=== PATIENT | male | born 1975 ===

== ENCOUNTER 2019-01-24 10:57 | Emergency (ER) | payer SELFPAY ==
[2019-01-24 11:03] VITALS: RESP 18; BMI 20.3
--- NOTE | 2019-01-24 12:07 | ED PDOC ---
HPI: Headache Time Seen by Provider: 01/24/19 11:25 History Per: Patient Onset/Duration Of Symptoms: Other (3 weeks) Current Symptoms Are (Timing): Intermittent Episodes Severity: Mild Quality: Aching Preceeding Symptoms: None Associated Symptoms: denies: Photophobia, Blurred Vision, Nausea, Vomiting, Extremity Weakness Additional Complaint(s): Intermittent bitemporal and frontal headaches x 3 weeks. Denies fever or injury. Denies dizziness, visual disturbances or peripheral weakness. Past Medical History Vital Signs: Last Vital Signs Temp 97.7 F 01/24/19 11:02 Pulse 73 01/24/19 11:02 Resp 18 01/24/19 11:02 BP 125/75 01/24/19 11:02 Pulse Ox 97 01/24/19 11:02 - Surgical History Other surgeries: Traumatic amputation right lower ext. - Family History Family History: States: Unknown Family Hx - Home Medications Home Medications: Ambulatory Orders Medication Instructions Recorded Famotidine [Pepcid] 20 mg PO BID #28 tab 03/06/15 Ondansetron [Zofran] 4 mg PO Q8H #9 tab 03/06/15 Cyclobenzaprine Hydrochlorid 5 mg PO TID PRN #15 tab 04/22/15 [Cyclobenzaprine] Ibuprofen 600 mg PO Q6H PRN #15 tab 04/22/15 Oxycodone HCl/Acetaminophen 1 tab PO Q6 PRN #15 tab 04/22/15 [Percocet 325 mg-5 mg] traMADol [Ultram] 50 mg PO Q8 #10 tab 01/24/19 - Allergies Allergies/Adverse Reactions: Allergies Allergy/AdvReac Type Severity Reaction Status Date / Time No Known Allergies Allergy Verified 01/24/19 12:18 Review of Systems Constitutional: Negative for: Fever Eyes: Negative for: Vision Change Musculoskeletal: Negative for: Neck Pain Neurological: Positive for: Headache. Negative for: Weakness, Numbness, Dizziness Physical Exam - Reviewed Nursing Documentation Reviewed: Yes Vital Signs Reviewed: Yes - Physical Exam Appears: Positive for: Non-toxic, No Acute Distress Head Exam: Positive for: ATRAUMATIC, NORMAL INSPECTION, NORMOCEPHALIC Skin: Positive for: Normal Color, Warm, DRY Eye Exam: Positive for: EOMI, Normal appearance, PERRL ENT: Positive for: Normal ENT Inspection. Negative for: Sinus Pain/Drainage Neck: Positive for: Normal, Painless ROM Cardiovascular/Chest: Positive for: Regular Rate, Rhythm Respiratory: Positive for: CNT, Normal Breath Sounds Gastrointestinal/Abdominal: Positive for: Normal Exam, Soft Back: Positive for: Normal Inspection Extremity: Positive for: Other (Prosthesis right lower ext) Neurologic/Psych: Positive for: Alert, Oriented. Negative for: Motor/Sensory Deficits - ECG O2 Sat by Pulse Oximetry: 97 Disposition - Clinical Impression Clinical Impression: Headache - Patient ED Disposition Is Patient to be Admitted: No Counseled Patient/Family Regarding: Studies Performed, Diagnosis, Need For Followup, Rx Given - Disposition Referrals: Theo Anaya MD [Medical Doctor] - Disposition: Routine/Home Disposition Time: 13:02 Condition: FAIR Prescriptions: traMADol [Ultram] 50 mg PO Q8 #10 tab Instructions: Headache, Adult
--- NOTE | 2019-01-24 13:03 | CT ---
Date of service: 01/24/2019 PROCEDURE: CT HEAD WITHOUT CONTRAST. HISTORY: Headache, intracranial hemorrhage suspected. COMPARISON: None available. TECHNIQUE: Axial computed tomography images were obtained through the head/brain without intravenous contrast. Supplemental Coronal and Sagittal projections created and reviewed. Radiation dose: Total exam DLP = 803.31 mGy-cm. This CT exam was performed using one or more of the following dose reduction techniques: Automated exposure control, adjustment of the mA and/or kV according to patient size, and/or use of iterative reconstruction technique. FINDINGS: HEMORRHAGE: No intracranial hemorrhage. BRAIN: No mass effect or edema. No atrophy or chronic microvascular ischemic changes. VENTRICLES: Unremarkable. No hydrocephalus. CALVARIUM: Unremarkable. PARANASAL SINUSES: Unremarkable as visualized. No significant inflammatory changes. MASTOID AIR CELLS: Unremarkable as visualized. No inflammatory changes. OTHER FINDINGS: None. IMPRESSION: No acute intracranial abnormalities. No significant findings to account for the clinical presentation.
[2019-01-24 13:20] VITALS: BP 116/82; PULSE 84; TEMP 98.2; O2SAT 95
== END 2019-01-24 13:16 | disposition home or self-care (01) ==
LOC: H.ER 10:57
DX: R51 Headache (principal)